=== PATIENT | male | born 1975 | race Caucasian/White ===

== ENCOUNTER 2016-08-26 11:34 | Emergency (ER) | payer OTHER ==
[~2016-08-26] VITALS: Ht 195.6 cm; Wt 122.5 kg
[~2016-08-26 11:34] MED LIST: MINOCYCLINE HCL PO; MOMETASONE FURO45 GM TOP; OXYCODONE-ACET1 EACH PO; PERCOCET 10-321 EACH PO; PERCOCET 325 MG1 TAB PO; PERCOCET 5-3251 EACH PO; PREDNISONE 20MG20 MG PO; TESTOSTERO200 MG/1 M IM; ULTRAVATE50 GM TOP; VALIUM10 M1 PO; ZOLOFT100 M1 PO
[2016-08-26 11:53] VITALS: BP 153/90
--- NOTE | 2016-08-26 11:58 | ED NECK/BACK PAIN COMPLAINT ---
History of Present Illness General Chief Complaint: Low Back Pain/Injury Stated Complaint: BACK PAIN Source: patient, old records Exam Limitations: no limitations Vital Signs & Intake/Output Vital Signs & Intake/Output Vital Signs Date Time Temp Pulse Resp B/P B/P Pulse O2 O2 Flow FiO2 Mean Ox Delivery Rate 08/26 1153 98 Room Air 08/26 1153 97.0 86 18 153/90 98 Room Air 08/26 1146 98.4 85 16 166/94 98 Room Air Room Air Allergies Coded Allergies: quetiapine (From SEROQUEL) (Severe, AGITATION 08/26/16) pregabalin (From LYRICA) (Severe, DEPRESSION 08/26/16) zolpidem (From Ambien) (Severe, HALLUCINATION 08/26/16) acetaminophen (From Vicodin) (Intermediate, HEADACHES 08/26/16) erythromycin base (From Erythrocin) (Intermediate, VOMITING 08/26/16) hydrocodone (From Vicodin) (Intermediate, HEADACHES 08/26/16) Reconcile Medications Diazepam (Valium) 10 MG TABLET 1 TAB PO Q8P PRN SPASM Halobetasol Propionate (Ultravate) 50 GM CREAM..G. 1 CORNELIO TOP PRN SKIN IN GROIN REGION (Reported) Minocycline HCl 75 MG CAPSULE 1 CAP PO DAILY ANTIBIOTIC (Reported) Mometasone Furoate 45 GM CREAM..G. 1 CORNELIO TOP PRN ECZEMA (Reported) apply to affected area(s) Oxycodone HCl/Acetaminophen (Oxycodone-Acetaminophen 5-325) 1 EACH TABLET 1-2 TAB PO Q4-6H PRN PAIN (Reported) Oxycodone HCl/Acetaminophen (Percocet 5-325 MG Tablet) 5 MG-325 MG TABLET 1-2 TAB PO Q6P PRN PAIN Sertraline HCl (Zoloft) 100 MG TABLET 1 TAB PO DAILY DEPRESSION (Reported) Testosterone Cypionate 200 MG/1 ML VIAL 1 ML IM Q10D HRT (Reported) Triage Note: PT TO TRIAGE WITH LOWER BACK PAIN FOR 4 WEEKS. PT STATES HE HAS BEEN GOING TO CHIROPRACTOR FOR THREE AND TAKING METHYCARBIDOL AND MELOXICAM WITHOUT RELEIF Triage Nurses Notes Reviewed? yes HPI: Patient has a history of sciatica. Patient states that he usually sees his chiropractor and then takes [id number] medications and the symptoms go away. Patient states he has been seeing his chiropractor for the past 3 weeks without relief. Patient was primary care physician on Saturday and was prescribed muscle relaxers and nonsteroidal anti-inflammatories. Patient states that the pain is 10 out of 10 and he just cannot take it anymore. The pain radiates down both legs. The pain increases with movement. There is no weakness or numbness. There is no incontinence of bowel or bladder. There is no known injury. The pain is aching and burning in nature. Past History Travel History Traveled to [place] past 21 day No Medical History Any Pertinent Medical History? 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 No Review of Systems Review of Systems Constitutional: Reports: no symptoms. Ears, Nose, Throat, Mouth: Reports: no symptoms. Respiratory: Reports: no symptoms. Cardiovascular: Reports: no symptoms. Musculoskeletal: Reports: see HPI, back pain. Neurological/Psychological: Reports: no symptoms. Physical Exam Physical Exam General Appearance: well developed/nourished, alert, awake, anxious, moderate distress Head: atraumatic, normal appearance Neck: normal inspection, supple, full range of motion Respiratory: normal breath sounds, chest non-tender, no respiratory distress, lungs clear Cardiovascular: regular rate/rhythm, normal peripheral pulses Gastrointestinal: normal bowel sounds, soft, non-tender, no organomegaly Back: normal inspection, normal range of motion, no vertebral tenderness Extremities: non-tender, normal range of motion Straight Leg Raising: Right: Negative. Left: Negative. Sensory: Medial Le: L4R, L4L. Top of Foot: 2: L5R, L5L. Sole of Foot: 2: SIR, EFRAIN. Motor: Deficit L4 Right: No Deficit L4 Left: No Deficit L5 Right: No Deficit L5 Left: No Deficit S1 Right: No Deficit S1 Right: No DTR: Patellar: 2: L4 Right, L4 Left. Achilles: 1: S1 Right, S1 Left. Neurologic/Psych: no motor/sensory deficits, awake, alert, oriented x 3, normal mood/affect Progress Differential Diagnosis: herniated disc, myofascial strain, sciatica, T/L spine injury Plan of Care: Current Medications Sig/Julianna Start time Last Medication Dose Stop Time Status Admin Hydromorphone HCl 2 MG ONCE ONE 08/26 1200 UNVr (Dilaudid) 08/26 1201 Departure Departure Disposition: HOME OR SELF CARE Condition: Stable Clinical Impression Primary Impression: Sciatica Referrals: AAYUSH SANTOS MD (PCP/Family) Additional Instructions: FOLLOW UP WITH YOUR DOCTOR RETURN FOR ANY CONCERNS Departure Forms: Customer Survey General Discharge Information Prescriptions: Current Visit Scripts Oxycodone HCl/Acetaminophen (Percocet 5-325 MG Tablet) 1-2 TAB PO Q6P PRN PAIN #20 TAB
[2016-08-26] MEDS ORDERED: PERCOCET 5-3251 EACH PO (11:59)
== END 2016-08-26 12:30 ==
LOC: ERH 11:34
DX: M54.31 Sciatica, right side (principal); M54.32 Sciatica, left side
CPT/HCPCS: 96372

== ENCOUNTER 2016-08-29 09:28 | Emergency (ER) | payer OTHER ==
[~2016-08-29] VITALS: Ht 182.9 cm; Wt 124.7 kg
[2016-08-29 09:32] VITALS: BP 159/110
--- NOTE | 2016-08-29 09:43 | ED NECK/BACK PAIN COMPLAINT ---
History of Present Illness General Chief Complaint: Low Back Pain/Injury Stated Complaint: LOW BACK PAIN Source: patient, old records Exam Limitations: no limitations Vital Signs & Intake/Output Vital Signs & Intake/Output Vital Signs Date Time Temp Pulse Resp B/P B/P Pulse O2 O2 Flow FiO2 Mean Ox Delivery Rate 08/29 0932 98.3 77 16 159/110 97 Room Air Allergies Coded Allergies: quetiapine (From SEROQUEL) (Severe, AGITATION 08/26/16) pregabalin (From LYRICA) (Severe, DEPRESSION 08/26/16) zolpidem (From Ambien) (Severe, HALLUCINATION 08/26/16) erythromycin base (From Erythrocin) (Intermediate, VOMITING 08/26/16) hydrocodone (From Vicodin) (Intermediate, HEADACHES 08/26/16) Reconcile Medications Duloxetine HCl 60 MG CAPSULE.DR 1 CAP PO DAILY UNKNOWN (Reported) Gabapentin 400 MG CAPSULE 1 CAP PO TID UNKNOWN (Reported) Halobetasol Propionate (Ultravate) 50 GM CREAM..G. 1 CORNELIO TOP PRN SKIN IN GROIN REGION (Reported) Hydromorphone HCl (Dilaudid) 2 MG TABLET 1 TAB PO BIDP PRN pain Methocarbamol 500 MG TABLET 1 TAB PO TID UNKNOWN (Reported) Methylprednisolone. (Medrol) 4 MG TAB.DS.PK 1 DP PO AD back pain 6 on day 1 then reduce by one tablet daily until gone Minocycline HCl 75 MG CAPSULE 1 CAP PO DAILY ANTIBIOTIC (Reported) Mometasone Furoate 45 GM CREAM..G. 1 CORNELIO TOP PRN ECZEMA (Reported) apply to affected area(s) Nadolol 20 MG TABLET 1 TAB PO DAILY HEART (Reported) Oxycodone HCl/Acetaminophen (Percocet 5-325 MG Tablet) 5 MG-325 MG TABLET 1-2 TAB PO Q6P PRN PAIN Sertraline HCl (Zoloft) 100 MG TABLET 1 TAB PO DAILY DEPRESSION (Reported) Testosterone Cypionate 200 MG/ML VIAL 2 ML IM Q10D HRT (Reported) Triage Note: 41 Y/O MALE C/O LOW BACK PAIN X 4 WEEKS; HAS BEEN TAKING PERCOCET WITH NO RELIEF. DUE FOR OUTPATIENT MRI ORDERED BY PRIMARY CARE. Triage Nurses Notes Reviewed? yes Onset: Gradual Duration: worse persistent since (1 week) Timing: recent history Quality/Severity: moderate Location: lumbar spine, paraspinous muscles Radiation: buttocks Method of Injury: prior injury HPI: Patient is a 41-year-old male presenting to the emergency department with chief complaint of low back pain that intermittently radiates into the buttock and upper legs. Reports that the pain is taken nature. Has been taking muscle relaxers, gabapentin without relief. Denies abdominal pain. No urinary frequency urgency or dysuria. No upper back pain. Denies any neck pain. Currently in the process of getting scheduled for an MRI of his low back. Denies any new injury but reports that the back pain started after shoveling rocks. He was seen and evaluated here 4 days ago for similar symptoms in the [place] medication which seemed to be helping but he ran out. Denies any urinary incontinence or retention. (DEVI JUAREZ) Past History Travel History Traveled to [place] past 21 day No Medical History Any Pertinent Medical History? 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 No (DEVI JUAREZ) Review of Systems Review of Systems Constitutional: Reports: no symptoms. Comments Review of systems: See HPI, All other systems negative. Constitutional, no chills fever or weight loss HEENT: No visual changes no sore throat no congestion Cardiovascular: No chest pain ,palpitation Skin, no jaundice no rashes Respiratory: No dyspnea cough sputum or hemoptysis GI: No nausea no vomiting : No dysuria No hematuria Muscle skeletal: no neck pain, Neurologic: No numbness no confusion no low Psych: No stress anxiety or depression,. Heme/endocrine: No bruising no bleeding no polyuria or polydipsia Immunology: No splenectomy or history of AIDS (DEVI JUAREZ) Physical Exam Physical Exam General Appearance: well developed/nourished, no apparent distress, alert, awake , comfortable Neck: normal inspection, supple, full range of motion Comments: Well-developed well-nourished person in no acute distress HEENT: Nose is atraumatic. Neck: normal range of motion without pain or tenderness, no c spine tenderness. Back: Tender to palpation in the lumbar pressure, region bilaterally. No bony tenderness. Limited range of motion with for flexion and extension secondary to pain. Negative modified straight leg raise bilaterally. Cardiovascular: Regular rate and rhythms no murmurs rubs or gallops, normal JVP Respiratory: Chest nontender. No respiratory distress.breath sounds clear to auscultation bilaterally Abdomen: Soft, nontender nondistended, no appreciable organomegaly. Normal bowel sounds. No ascites Extremity: No edema, full rom of all ext. muscle strength is 5/5 in upper and lwoer ext bilaterally. Neuro: Alert oriented x3, motor sensory normal, patellar reflexes are 2+ bilaterally. Skin: No appreciable rash on exposed skin, skin is warm and dry. Psych: Mood and affect is normal, memory and judgment is normal. (DHEERAJ GAINES,DEVI) Progress Differential Diagnosis: cauda equina syn, herniated disc, myofascial strain, sciatica Plan of Care: Current Medications Sig/Julianna Start time Last Medication Dose Stop Time Status Admin Ketorolac 30 MG ONCE ONE 08/29 1000 UNVr Tromethamine 08/29 1001 (Toradol) Departure Departure Time of Disposition: 955 Disposition: HOME OR SELF CARE Condition: Stable Clinical Impression Primary Impression: Back pain Qualifiers: Back pain location: low back pain Chronicity: unspecified Back pain laterality: bilateral Sciatica presence: with sciatica Sciatica laterality: sciatica laterality unspecified Qualified Code: M54.40 - Lumbago with sciatica, unspecified side Referrals: AAYUSH SANTOS MD (PCP/Family) Additional Instructions: Follow-up with your neurosurgeon call to make appointment. Stop taking meloxicam at this time as I'm putting you on a Medrol Dosepak. This will help with pain and inflammation. For severe pain take Dilaudid. Continue previously prescribed muscle relaxer and gabapentin. Departure Forms: Customer Survey General Discharge Information Prescriptions: Current Visit Scripts Hydromorphone HCl (Dilaudid) 1 TAB PO BIDP PRN pain #10 TAB Methylprednisolone. (Medrol) 1 DP PO AD #1 DP 6 on day 1 then reduce by one tablet daily until gone (DEVI JUAREZ) PA/COMPLIANCE DIRECTOR Co-Sign Statement Statement: ED Attending supervision documentation- [] I saw and evaluated the patient. I have also reviewed all the pertinent lab results and diagnostic results. I agree with the findings and the plan of care as documented in the PA's/COMPLIANCE DIRECTOR's documentation. [X] I have reviewed the ED Record and agree with the PA's/COMPLIANCE DIRECTOR's documentation. [] Additions or exceptions (if any) to the PAs/COMPLIANCE DIRECTOR's note and plan are summarized below: [] (GABBI SHAW DO
[2016-08-29] MEDS ORDERED: METHOCARBAMOL500 M1 PO (09:55)
[2016-08-29] MEDS ORDERED: NADOLOL20 M1 PO (09:55)
[2016-08-29] MEDS ORDERED: DULOXETINE HCL60 MG PO (09:55)
[2016-08-29] MEDS ORDERED: GABAPENTIN400 M2 PO (09:56)
[2016-08-29] MEDS ORDERED: DILAUDID2 M1 PO (09:59)
[2016-08-29] MEDS ORDERED: MEDROL4 M2 PO (09:59)
== END 2016-08-29 10:16 ==
LOC: ERH 09:28
DX: M54.5 Low back pain (principal)
CPT/HCPCS: 96372; J1885

== ENCOUNTER 2016-09-01 20:20 | Emergency (ER) | payer OTHER ==
[~2016-09-01] VITALS: Ht 182.9 cm; Wt 122.9 kg
[~2016-09-01 20:20] MED LIST changes: +DILAUDID2 M1 PO; +DULOXETINE HCL60 MG PO; +GABAPENTIN400 M2 PO; +MEDROL4 M2 PO; +METHOCARBAMOL500 M1 PO; +NADOLOL20 M1 PO
--- NOTE | 2016-09-01 22:23 | ED NECK/BACK PAIN COMPLAINT ---
History of Present Illness General Chief Complaint: Low Back Pain/Injury Stated Complaint: "PER PT LOWER BACK PAIN RADIATING TO BOTH LEGS" Source: patient, old records Exam Limitations: no limitations Vital Signs & Intake/Output Vital Signs & Intake/Output Vital Signs Date Time Temp Pulse Resp B/P B/P Pulse O2 O2 Flow FiO2 Mean Ox Delivery Rate 09/01 2252 98.9 74 17 165/74 95 Room Air 09/01 2046 Room Air 09/02 2031 99.0 87 18 178/83 96 Room Air ED Intake and Output 09/02 0000 09/01 1200 Intake Total Output Total Balance Patient 271 lb Weight Weight Reported by Patient Measurement Method Allergies Coded Allergies: quetiapine (From SEROQUEL) (Severe, AGITATION 08/26/16) pregabalin (From LYRICA) (Severe, DEPRESSION 08/26/16) zolpidem (From Ambien) (Severe, HALLUCINATION 08/26/16) erythromycin base (From Erythrocin) (Intermediate, VOMITING 08/26/16) hydrocodone (From Vicodin) (Intermediate, HEADACHES 08/26/16) Triage Note: PT TO TRIAGE WITH C/O LOWER BACK PAIN 10/10 RADIATING TO BILAT LE S/P SHOWELING COUPLE WEEKS AGO. PT WAS SEEN HERE IN ER FOR SAME, CURRENTLY ON DILAUDID WHICH IS NOT HELPING WITH PAIN, MRI DONE ON 08/31 HERE AT [facility]. Triage Nurses Notes Reviewed? 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 PAIN IS 10/10 RADIATING TO BOTH LEGS. DENIES MOTOR WEAKNESS, SENSORY LOSS, INCONTINENCE, SADDLE PARESTHESIA. RANGE OF MOTION LIMITED BY PAIN BUT NEUROLOGICALLY INTACT. UNDERWENT MRI YESTERDAY WHICH SHOWED SEVERE MULTI-VERTEBRAL CHRONIC INJURY WITH MULTIPLE NERVE ROOT COMPRESSION. (PATRICK CURTIS,SUSHIL) Reconcile Medications Duloxetine HCl 60 MG CAPSULE.DR 1 CAP PO DAILY UNKNOWN (Reported) Gabapentin 400 MG CAPSULE 1 CAP PO TID UNKNOWN (Reported) Halobetasol Propionate (Ultravate) 50 GM CREAM..G. 1 CORNELIO TOP PRN SKIN IN GROIN REGION (Reported) Hydromorphone HCl (Dilaudid) 2 MG TABLET 1 TAB PO BIDP PRN severe lower back pain Hydromorphone HCl (Dilaudid) 2 MG TABLET 1 TAB PO BIDP PRN pain Methocarbamol 500 MG TABLET 1 TAB PO TID UNKNOWN (Reported) Methylprednisolone. (Medrol) 4 MG TAB.DS.PK 1 DP PO AD back pain 6 on day 1 then reduce by one tablet daily until gone Minocycline HCl 75 MG CAPSULE 1 CAP PO DAILY ANTIBIOTIC (Reported) Mometasone Furoate 45 GM CREAM..G. 1 CORNELIO TOP PRN ECZEMA (Reported) apply to affected area(s) Morphine Sulfate (Ms Contin) 30 MG TABLET.ER 1 TAB PO BIDP PRN SEVERE LOWER BACK PAIN Nadolol 20 MG TABLET 1 TAB PO DAILY HEART (Reported) Oxycodone HCl/Acetaminophen (Percocet 5-325 MG Tablet) 5 MG-325 MG TABLET 1-2 TAB PO Q6P PRN PAIN Sertraline HCl (Zoloft) 100 MG TABLET 1 TAB PO DAILY DEPRESSION (Reported) Testosterone Cypionate 200 MG/ML VIAL 2 ML IM Q10D HRT (Reported) (KAREN CURTIS,THOMAS) Past History Travel History Traveled to [place] past 21 day No Medical History Any Pertinent Medical History? 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 No (SUSHIL NGUYEN MD) Review of Systems Review of Systems Constitutional: Reports: no symptoms. Eyes: Reports: no symptoms. Ears, Nose, Throat, Mouth: Reports: no symptoms. Respiratory: Reports: no symptoms. Cardiovascular: Reports: no symptoms. Gastrointestinal/Abdominal: Reports: no symptoms. Musculoskeletal: Reports: see HPI. Skin: Reports: no symptoms. Neurological/Psychological: Reports: see HPI. All Other Systems: Reviewed and Negative (SUSHIL NGUYEN MD) Physical Exam Physical Exam General Appearance: well developed/nourished, no apparent distress Head: atraumatic, normal appearance Eyes: Bilateral: normal appearance. Ears, Nose, Throat, Mouth: hearing grossly normal, moist mucous membrane Neck: normal inspection, supple, full range of motion Respiratory: normal breath sounds, chest non-tender, no respiratory distress Cardiovascular: regular rate/rhythm Gastrointestinal: soft, non-tender Back: vertebral tenderness, decreased range of motion Extremities: injury present, straight leg raised Straight Leg Raising: Right: Pain at ____ degrees (0). Left: Pain at ____ degrees (0). Neurologic/Psych: no motor/sensory deficits, normal gait (PATRICK CURTIS,SUSHIL) Progress Differential Diagnosis: cauda equina syn, herniated disc, pyelo/UTI, sciatica, spinal cord inj, T/L spine injury Plan of Care: Current Medications Sig/Julianna Start time Last Medication Dose Stop Time Status Admin Hydromorphone HCl 2 MG ONCE ONE 09/01 2229 UNVr (Dilaudid) 09/01 2230 SEVERE PAIN DUE TO MULTIPLE LUMBAR VERTERBRAL ISSUES. GIVEN TORADOL 30MG IV, VALIUM 2MG, DILAUDID 1MG X2 WITH IMPROVEMENT IN PAIN. PATIENT ALREADY ON MEDROL DOSE PACK. NO NEW NEUROLOGICAL DYSFUNCTION OR DEFICIT WARRANTING EMERGENT INTERVENTION. PATIENT CAN BE DISCHARGED HOME WITH NEUROSURGERY FOLLOW UP. WILL START ON SHORT COURSE OF MS-CONTIN AND CAN CONTINUE HOME DILAUDID, ROBAXIN, NEURONTIN, AND DULOXETINE FOR PAIN. (PATRICK CURTIS,SUSHIL) Diagnostic Imaging: Viewed by Me: MRI. Discussed w/RAD: MRI. Radiology Impression: PATIENT: KEV RILEY PRESENT AGE : 41 PATIENT ACCOUNT NO: [id number] : 75 LOCATION: [facility]MRI ORDERING PHYSICIAN: AAYUSH SANTOS MD SERVICE DATE: 08/31/16 EXAM TYPE: MRI - MRI- LUMBAR SPINE EXAMINATION: MR LUMBAR SPINE WITHOUT CONTRAST CLINICAL INFORMATION: Acute midline low back pain with sciatica. COMPARISON: CT pelvis from 12/27/2008 TECHNIQUE: MRI of the lumbar spine without contrast was obtained using routine sequences. FINDINGS: VERTEBRAL BODIES AND PARASPINAL STRUCTURES: There are 5 nonrib-bearing lumbar type vertebral bodies. Vertebral body height is maintained. Sagittal alignment is maintained. Marrow signal appears grossly maintained. There is a Schmorl's node along the superior endplate of L4 with surrounding Modic type II endplate changes and faint edematous endplate changes well. Elsewhere no convincing marrow edema. There is multilevel disc desiccation with moderate intervertebral disc height loss at L4-L5 and L5-S1 and mild intervertebral disc height loss at L3-L4. No convincing spondylolysis or scoliosis. There is multilevel mild prominence of the posterior epidural fat suggesting epidural lipomatosis. The visualized aorta is normal in caliber. No adenopathy. Paraspinal muscle bulk is maintained. The imaged SI joints appear unremarkable. CONUS MEDULLARIS AND CAUDA EQUINA: The conus terminates normally at L1. There is normal signal within the conus medullaris, cauda equina, and along the expected course of the filum terminale. SPINAL LEVELS: L1-L2: Disc bulge and mild facet hypertrophy. Minimal flattening of the ventral thecal sac. The foramina are well maintained. L2-L3: There is disc bulge with a left subarticular protrusion. Facet hypertrophy with small facet effusions, thickening of ligamentum flavum, and prominence of the posterior epidural fat. There is moderate to severe narrowing of the thecal sac, nearly completely effacing the CSF surrounding the nerve roots, and completely obliterating the left subarticular recess, impinging upon the traversing left L3 nerve root. There is a shallow right distal foraminal to extraforaminal protrusion which potentially contacts the exiting right L2 nerve root. The left foramen is minimally narrowed. L3-L4: There is disc bulge with a right subarticular disc protrusion. Facet hypertrophy thickening of ligamentum flavum and mild prominence of the posterior epidural fat. There is moderate canal stenosis, particularly effacing the right subarticular recess and impinging upon the traversing right L4 nerve root. There is mild bilateral foraminal stenosis, right more than left potentially contacting the exiting right L3 nerve root. L4- L5: There is disc bulge, facet hypertrophy, thickening of ligamentum flavum. There is mild to moderate trefoil type canal stenosis appearing to contact the traversing L5 nerve roots. Moderate right and mild to moderate left foraminal stenosis contacting the exiting L4 nerve roots. L5-S1: There is disc osteophyte complex with a central disc protrusion. Facet hypertrophy. There is mild trefoil type canal stenosis contacting the traversing S1 nerve roots. High-grade bilateral foraminal stenosis impinging upon the exiting L5 nerve roots. IMPRESSION: Multilevel lumbar spondylosis as well as mild prominence of the epidural fat suggesting epidural lipomatosis. L2-L3: Left subarticular protrusion contributing to fairly high-grade narrowing of the thecal sac, nearly completely effacing the CSF surrounding the nerve roots and impinging particularly upon the traversing left L3 nerve root. Shallow right foraminal to extraforaminal protrusion potentially contacting the exiting right L2 nerve root. L3-L4: Right subarticular protrusion contributing to moderate canal stenosis, particularly impinging upon the traversing right L4 nerve root. Left greater than right foraminal stenosis potentially contacting the exiting right L3 nerve root. Schmorl's node along the superior endplate of L4 with surrounding mixed Modic endplate changes including an edematous component. L4-L5: Multifactorial mild to moderate trefoil type canal stenosis contacting the traversing L5 nerve roots. Right greater than left foraminal stenosis contacting the exiting L4 nerve roots. L5-S1: Multifactorial mild trefoil type canal stenosis contacting the traversing S1 nerve roots. High-grade bilateral foraminal stenosis impinging upon the exiting L5 nerve roots. DICTATED BY: KACI HERRERA MD DATE/TIME DICTATED:08/31/161446 BRIQUETTE MOLDER:ZACHARY DATE/ TIME TRANSCRIBED:08/31/161446 CONFIDENTIAL, DO NOT COPY WITHOUT APPROPRIATE AUTHORIZATION. <Electronically signed in Other Vendor System> SIGNED BY: KACI HERRERA MD 08/31/16 [id number] (SUSHIL NGUYEN MD) Departure Departure Time of Disposition: 2241 Disposition: HOME OR SELF CARE Condition: Stable Clinical Impression Primary Impression: Lumbar disc herniation with radiculopathy Referrals: JOCELYNN CURTIS,CARL SANTOS MD,AAYUSH (PCP/Family) Additional Instructions: CONTINUE YOUR MEDROL DOSE PACK UNTIL COMPLETE. SEE DR. CABEZAS SOON POSSIBLE. DO NOT PERFORM HEAVY LIFTING. MAY TAKE MOTRIN AND MS-CONTIN FOR PAIN , WELL YOUR USUAL HOME MEDICATIONS. RETURN TO EMERGENCY DEPARTMENT IF YOU EXPERIENCE FECAL OR URINARY INCONTINENCE, PARESTHESIA OF THE GROIN/PERINEAUM/ INNER THIGHS, OR LEG WEAKNESS OR CHANGE IN SENSATION. Departure Forms: Customer Survey General Discharge Information Prescriptions: Current Visit Scripts Morphine Sulfate (Ms Contin) 1 TAB PO BIDP PRN SEVERE LOWER BACK PAIN #10 TAB Hydromorphone HCl (Dilaudid) 1 TAB PO BIDP PRN severe lower back pain #10 TAB (SUSHIL NGUYEN MD) Resident Co-Sign Statement Statement: ED Attending supervision documentation- [] I saw and evaluated the patient. I have also reviewed all the pertinent lab results and diagnostic results. I agree with the findings and the plan of care as documented in the Resident's documentation. [X] I have reviewed the ED Record and agree with the Resident's documentation. [] Additions or exceptions (if any) to the Resident's note and plan are summarized below: [] (KAREN CURTIS,THOMAS)
[2016-09-01] MEDS ORDERED: MS CONTIN30 M1 PO (22:47)
[2016-09-01] MEDS ORDERED: DILAUDID2 M1 PO (22:47)
[2016-09-01 22:52] VITALS: BP 165/74
== END 2016-09-01 22:54 ==
LOC: ERH 20:20
DX: M51.16 Intervertebral disc disorders with radiculopathy, lumbar region (principal)
CPT/HCPCS: 96374; 96375; 96376; J1885

== ENCOUNTER 2016-09-06 18:51 | Emergency (ER) | payer OTHER ==
[~2016-09-06] VITALS: Ht 182.9 cm; Wt 125.2 kg
[~2016-09-06 18:51] MED LIST changes: +MS CONTIN30 M1 PO
[2016-09-06 19:40] VITALS: BP 151/93
--- NOTE | 2016-09-06 21:08 | ED GENERAL ADULT ---
History of Present Illness General Chief Complaint: Lower Extremity Problems Stated Complaint: PT IS HAVING LOWER BACK PAIN Source: patient, old records Exam Limitations: no limitations Vital Signs & Intake/Output Vital Signs & Intake/Output Vital Signs Date Time Temp Pulse Resp B/P B/P Pulse O2 O2 Flow FiO2 Mean Ox Delivery Rate 09/07 1939 97.8 84 20 151/93 97 Room Air Allergies Coded Allergies: quetiapine (From SEROQUEL) (Severe, AGITATION 09/06/16) pregabalin (From LYRICA) (Severe, DEPRESSION 09/06/16) zolpidem (From Ambien) (Severe, HALLUCINATION 09/06/16) erythromycin base (From Erythrocin) (Intermediate, VOMITING 09/06/16) hydrocodone (From Vicodin) (Intermediate, HEADACHES 09/06/16) Reconcile Medications Diazepam (Valium) 5 MG TABLET 1-2 TAB PO Q6P PRN muscle strain/spasm Duloxetine HCl 60 MG CAPSULE.DR 1 CAP PO DAILY UNKNOWN (Reported) Gabapentin 400 MG CAPSULE 1 CAP PO TID UNKNOWN (Reported) Halobetasol Propionate (Ultravate) 50 GM CREAM..G. 1 CORNELIO TOP PRN SKIN IN GROIN REGION (Reported) Hydromorphone HCl (Dilaudid) 2 MG TABLET 1 TAB PO BIDP PRN severe lower back pain Hydromorphone HCl (Dilaudid) 2 MG TABLET 1 TAB PO BIDP PRN pain Methocarbamol 500 MG TABLET 1 TAB PO TID UNKNOWN (Reported) Methylprednisolone. (Medrol) 4 MG TAB.DS.PK 1 DP PO AD back pain 6 on day 1 then reduce by one tablet daily until gone Minocycline HCl 75 MG CAPSULE 1 CAP PO DAILY ANTIBIOTIC (Reported) Mometasone Furoate 45 GM CREAM..G. 1 CORNELIO TOP PRN ECZEMA (Reported) apply to affected area(s) Morphine Sulfate (Ms Contin) 30 MG TABLET.ER 1 TAB PO BIDP PRN SEVERE LOWER BACK PAIN Nadolol 20 MG TABLET 1 TAB PO DAILY HEART (Reported) Oxycodone HCl/Acetaminophen (Percocet 5-325 MG Tablet) 5 MG-325 MG TABLET 1-2 TAB PO Q6P PRN PAIN Sertraline HCl (Zoloft) 100 MG TABLET 1 TAB PO DAILY DEPRESSION (Reported) Testosterone Cypionate 200 MG/ML VIAL 2 ML IM Q10D HRT (Reported) Triage Note: TRIAGE: PT TO ER C/C LOW BACK PAIN X 5 WKS. DENIES ANY INJURY BUT "I WAS SHOVELING AND MY BACK GAVE OUT ON ME BUT I'VE SINCE HAD AN MRI AND THE SHOVELING HAD NOTHING TO DO WITH IT." HAS BEEN SEEN HERE X 3 FOR SAME, FOLLOWED UP WITH PMD X 2. WAS PRESCRIBED PERCOCET, DILAUDID, MORPHINE, GABAPENTIN AND METHOCARBINOL WITH NO RELIEF REPORTED. STATES CURRENTLY IS ON PERCOCET 10 MG WHICH "HASN'T DONE ANYTHING". WAS ADVISED TO COME TO ER BY PMD. Triage Nurses Notes Reviewed? yes Onset: 1 month Duration: week(s):, constant, continues in ED Timing: recent history Injury Environment: work Severity: severe Modifying Factors: Improves With: medication, rest. Worsens With: movement. Associated Symptoms: back pain HPI: Patient complains of low back pain after injury 1 month prior to admission shoveling stones. His pain is not well controlled with current management of oxycodone methocarbamol Medrol Dosepak gabapentin. He denies fever chills nausea vomiting diarrhea abdominal pain chest pain shortness breath headache dysuria rash bleeding change in bowel bladder function change in motor sensory function. Past History Travel History Traveled to [place] past 21 day No Medical History Any Pertinent Medical History? 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 No Review of Systems Review of Systems Constitutional: Reports: no symptoms. EENTM: Reports: no symptoms. Respiratory: Reports: no symptoms. Cardiovascular: Reports: no symptoms. GI: Reports: no symptoms. Genitourinary: Reports: no symptoms. Musculoskeletal: Reports: see HPI, back pain. Skin: Reports: no symptoms. Neurological/Psychological: Reports: no symptoms. Hematologic/Endocrine: Reports: no symptoms. Immunologic/Allergic: Reports: no symptoms. All Other Systems: Reviewed and Negative Physical Exam Physical Exam General Appearance: well developed/nourished, alert, awake, anxious, mild distress, obese Head: atraumatic, normal appearance Eyes: Bilateral: normal appearance, PERRL, EOMI. Ears, Nose, Throat: normal pharynx, normal ENT inspection, hearing grossly normal Neck: normal inspection, supple, full range of motion, no midline tenderness Respiratory: normal breath sounds, chest non-tender, no respiratory distress, quiet respiration, lungs clear Cardiovascular: regular rate/rhythm, normal peripheral pulses, norml femoral pulses equa Peripheral Pulses: 4+ carotid (R), 4+ carotid (L) Gastrointestinal: normal bowel sounds, soft, non-tender, no organomegaly Back: normal inspection, normal range of motion Extremities: normal inspection, normal capillary refill, normal range of motion, no edema, no ligament instability Neurologic/Psych: no motor/sensory deficits, awake, alert, oriented x 3, normal gait, normal 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 Skin: intact, normal color, warm/dry Lymphatic: no anterior cervical emerson Core Measures ACS in differential dx? No CVA/TIA Diagnosis: No Severe Sepsis Present: No Septic Shock Present: No Progress Differential Diagnoses I considered the following diagnoses in my evaluation of the patient: Intractable pain Plan of Care: Current Medications Sig/Julianna Start time Last Medication Dose Stop Time Status Admin Fentanyl Citrate 100 MCG Q72H 09/06 2114 AC (Duragesic) Initial ED EKG: none Departure Departure Time of Disposition: 2107 Disposition: HOME OR SELF CARE Condition: Stable Clinical Impression Primary Impression: Spinal stenosis of lumbar region Referrals: JOCELYNN CURTIS,CARL SANTOS MD,AAYUSH (PCP/Family) Additional Instructions: Increase gabapentin to 800 mg 3 times a day. Stop Methocarbamol and use Valium. Departure Forms: Customer Survey General Discharge Information Prescriptions: Current Visit Scripts Diazepam (Valium) 1-2 TAB PO Q6P PRN muscle strain/spasm #30 TAB Ref 1 Critical Care Note Critical Care Note Critical Care Time: non-applicable
[2016-09-06] MEDS ORDERED: VALIUM5 M2 PO (21:10)
== END 2016-09-06 21:55 ==
LOC: ERH 18:51
DX: M48.06 Spinal stenosis, lumbar region (principal)

== ENCOUNTER 2016-09-29 10:05 | Emergency (ER) | payer OTHER ==
[~2016-09-29] VITALS: Ht 182.9 cm; Wt 124.7 kg
[~2016-09-29 10:05] MED LIST changes: +VALIUM5 M2 PO
--- NOTE | 2016-09-29 10:43 | ED NECK/BACK PAIN COMPLAINT ---
History of Present Illness General Chief Complaint: Low Back Pain/Injury Stated Complaint: LOWER BACK PAIN APPROX 7-8 WEEKS Source: patient, old records Exam Limitations: no limitations Vital Signs & Intake/Output Vital Signs & Intake/Output Vital Signs Date Time Temp Pulse Resp B/P B/P Pulse O2 O2 Flow FiO2 Mean Ox Delivery Rate 09/29 1101 Room Air Room Air 09/29 1012 97.9 81 18 138/80 100 Room Air Allergies Coded Allergies: quetiapine (From SEROQUEL) (Severe, AGITATION 09/06/16) pregabalin (From LYRICA) (Severe, DEPRESSION 09/06/16) zolpidem (From Ambien) (Severe, HALLUCINATION 09/06/16) erythromycin base (From Erythrocin) (Intermediate, VOMITING 09/06/16) hydrocodone (From Vicodin) (Intermediate, HEADACHES 09/06/16) Reconcile Medications Diazepam (Valium) 5 MG TABLET 1-2 TAB PO Q6P PRN muscle strain/spasm Duloxetine HCl 60 MG CAPSULE.DR 1 CAP PO DAILY UNKNOWN (Reported) Gabapentin 400 MG CAPSULE 1 CAP PO TID UNKNOWN (Reported) Halobetasol Propionate (Ultravate) 50 GM CREAM..G. 1 CORNELIO TOP PRN SKIN IN GROIN REGION (Reported) Hydromorphone HCl (Dilaudid) 2 MG TABLET 1 TAB PO BIDP PRN severe lower back pain Hydromorphone HCl (Dilaudid) 4 MG TABLET 1-2 TAB PO 4XDP PRN PAIN Hydromorphone HCl (Dilaudid) 2 MG TABLET 1 TAB PO BIDP PRN pain Methocarbamol 500 MG TABLET 1 TAB PO TID UNKNOWN (Reported) Methylprednisolone. (Medrol) 4 MG TAB.DS.PK 1 DP PO AD BACK PAIN 6 on day 1 then reduce by one tablet daily until gone Methylprednisolone. (Medrol) 4 MG TAB.DS.PK 1 DP PO AD back pain 6 on day 1 then reduce by one tablet daily until gone Minocycline HCl 75 MG CAPSULE 1 CAP PO DAILY ANTIBIOTIC (Reported) Mometasone Furoate 45 GM CREAM..G. 1 CORNELIO TOP PRN ECZEMA (Reported) apply to affected area(s) Morphine Sulfate (Ms Contin) 30 MG TABLET.ER 1 TAB PO BIDP PRN SEVERE LOWER BACK PAIN Nadolol 20 MG TABLET 1 TAB PO DAILY HEART (Reported) Oxycodone HCl/Acetaminophen (Percocet 5-325 MG Tablet) 5 MG-325 MG TABLET 1-2 TAB PO Q6P PRN PAIN Sertraline HCl (Zoloft) 100 MG TABLET 1 TAB PO DAILY DEPRESSION (Reported) Testosterone Cypionate 200 MG/ML VIAL 2 ML IM Q10D HRT (Reported) Triage Note: PT TO ED FOR BACK PAIN X 8 WEEKS. SEEN HERE 4 TIMES FOR SAME, HAS ALSO SEEN PCP 2X AND NEUROSURGEON 3X. HAS PAIN MANAGEMENT F/U ON SATURDAY. Triage Nurses Notes Reviewed? yes HPI: Patient presents with continued low back pain. Patient states that no prescription is helping his pain. Patient is due to see a pain management doctor on Saturday for an injection into his back. Patient has been on oxycodone as well as Nucynta without any relief. The pain is 10 out of 10 with any ambulation and decreases to a 0 out of 10 when he is laying flat and staying still. The pain also increases whenever he moves his legs. There is no weakness or numbness. There is no incontinence of bowel or bladder. The pain is aching and throbbing in nature. Patient states that he cannot take this pain for another 24 hours. Patient states that he was seen here a week and a half ago and was given a fentanyl patch. Patient states that the fentanyl patch was 100 g. Patient states that he then became a little bit nauseous all on it so thinks that it was too high but does so he is requesting a lower dose fentanyl patch. Past History Travel History Traveled to [place] past 21 day No Medical History Any Pertinent Medical History? 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 Cardiovascular: hypertension Respiratory: NONE Gastrointestinal: NONE Hepatic: NONE Renal: NONE Musculoskeletal: CHRONIC BACK PAIN Psychiatric: anxiety Endocrine: NONE Blood Disorders: ERYTHROCYTOSIS Cancer(s): NONE ROAD CROSSING GUARD/Reproductive: LOW TESTOSTERONE History of MRSA: No History of VRE: No History of CDIFF: No Surgical History Surgical History: HERNA REPAIR X4 CERVICAL FUSION Psychosocial History Who do you live with Spouse Services at Home None What is your primary language Amharic Tobacco Use: Never used ETOH Use: denies use Illicit Drug Use: denies illicit drug use Family History Hx Contributory? No Review of Systems Review of Systems Constitutional: Reports: no symptoms. Eyes: Reports: no symptoms. Ears, Nose, Throat, Mouth: Reports: no symptoms. Respiratory: Reports: no symptoms. Cardiovascular: Reports: no symptoms. Gastrointestinal/Abdominal: Reports: no symptoms. Musculoskeletal: Reports: see HPI, back pain. Skin: Reports: no symptoms. Neurological/Psychological: Reports: no symptoms. All Other Systems: Reviewed and Negative Physical Exam Physical Exam General Appearance: well developed/nourished, alert, awake, anxious, moderate distress Head: atraumatic, normal appearance Eyes: Bilateral: PERRL, EOMI. Ears, Nose, Throat, Mouth: hearing grossly normal Neck: normal inspection, supple, full range of motion Respiratory: normal breath sounds, chest non-tender, no respiratory distress, lungs clear Cardiovascular: regular rate/rhythm, normal peripheral pulses Gastrointestinal: normal bowel sounds, soft, non-tender Back: normal inspection, muscle spasm, no vertebral tenderness Extremities: normal range of motion Straight Leg Raising: Right: Negative. Left: Negative. Neurologic/Psych: awake, alert, oriented x 3, normal mood/affect Skin: intact, normal color, warm/dry Progress Differential Diagnosis: cauda equina syn, herniated disc, myofascial strain, sciatica Plan of Care: Orders Procedure Date/time Status PT Evaluate & Treat 09/29 1101 Active Comments: Patient advised that we cannot give him a fentanyl patch here in the emergency department and we would be unable to provide him with narcotics since he just received 50 pills 10 days ago and another prescription 3 days ago. Patient states that he does not know what is going to multiple pain. Calls were placed to his neurosurgeon. Patient is asking for admission to the hospital. We'll have physical therapy evaluate the patient. Discussed with Dr. Cabezas, she recommends discharging the patient on a Medrol Dosepak and 4 mg Dilaudid pills and the patient will be seen on Saturday in the office. Departure Departure Disposition: HOME OR SELF CARE Condition: Stable Clinical Impression Primary Impression: Back pain Qualifiers: Back pain location: low back pain Chronicity: chronic Back pain laterality: bilateral Sciatica presence: without sciatica Qualified Codes: M54.5 - Low back pain; G89.29 - Other chronic pain Referrals: JOCELYNN CURTIS,CARL SANTOS MD,AAYUSH (PCP/Family) Additional Instructions: FOLLOW UP WITH DR. CABEZAS ON SATURDAY RETURN FOR ANY CONCERNS Departure Forms: Customer Survey General Discharge Information Prescriptions: Current Visit Scripts Methylprednisolone. (Medrol) 1 DP PO AD #1 DP 6 on day 1 then reduce by one tablet daily until gone Hydromorphone HCl (Dilaudid) 1-2 TAB PO 4XDP PRN PAIN #20 TAB
[2016-09-29] MEDS ORDERED: DILAUDID4 M1 PO (11:49)
[2016-09-29] MEDS ORDERED: MEDROL4 M2 PO (11:49)
[2016-09-29 12:02] VITALS: BP 124/74
== END 2016-09-29 12:02 ==
LOC: ERH 10:05
DX: M54.5 Low back pain (principal)